=== PATIENT | male | born 1955 | race Hispanic/Latino ===

== ENCOUNTER 2022-06-17 15:00 | Emergency (ER) | payer SELFPAY ==
[~2022-06-17 15:00] MED LIST: Iopamidol 370 76% 100 ML VIAL ONE
[2022-06-17 15:40] LABS: #Lymphocytes 1.2 thou/uL (1.20-3.40); #Monocytes 0.8 thou/uL (0.11-0.59); #Neutrophils 11.9 thou/uL (1.40-6.50); %Basophils 0.2 % (0.0-1.0); %Lymphocytes 8.8 % (21.0-51.0); %Monocytes 5.9 % (0.0-10.0); %Neutrophils 85.1 % (42.0-75.0); Hemoglobin 15.5 g/dL (14.0-18.0); Mean Corpuscular HGB CONC 35.8 g/dL (32.0-36.0); Mean Corpuscular Hemoglobin 31.8 pg (27.0-31.0); Mean Corpuscular Volume 88.7 fl (78.0-98.0); Mean Platelet Volume 7.7 fL (7.4-10.4); Platelet Count 253 10x3/uL (130-400); RBC Distribution Width 12.4 % (11.5-14.5); White Blood Cell (WBC) Count 13.9 10x3/uL (4.8-10.8)
[2022-06-17 15:55] LABS: ALT (SGPT) 80 U/L (8-55); AST (SGOT) 37 U/L (5-34); Albumin 4.1 g/dL (3.4-4.8); Alkaline Phosphatase 83 U/L (40-110); Anion Gap 20 mmol/L (10-20); BUN (Urea Nitrogen) 39 mg/dL (8.4-25.7); Bilirubin, Total 1.1 mg/dL (0.2-1.2); Calc. Creatinine Clearance 0 mL/min (70-130); Calcium 11.7 mg/dL (7.8-10.44); Carbon Dioxide 25 mmol/L (23-31); Chloride 101 mmol/L (98-107); Estimated GFR 72; Globulin 3.9 g/dL (2.4-3.5); Glucose 154 mg/dL (80-115); Lipase 33 U/L (8-78); Potassium 3.3 mmol/L (3.5-5.1); Sodium 143 mmol/L (136-145)
[2022-06-17] MEDS ORDERED: Sodium Chloride 0.9% 1,000 ML ONE (15:58)
[2022-06-17] MEDS ORDERED: Sodium Chloride 0.9% 500 ML ONE (16:06)
== END 2022-06-17 18:11 | disposition short-term general hospital (02) ==
LOC: NAV ERS 15:00
DX: T18.128A Food in esophagus causing other injury, initial encounter (principal); R00.1 Bradycardia, unspecified; E86.0 Dehydration; D72.829 Elevated white blood cell count, unspecified; E83.52 Hypercalcemia; K22.89 Other specified disease of esophagus; R59.9 Enlarged lymph nodes, unspecified
CPT/HCPCS: 70491; 71045; 80053; 83605; 83690; 85025; 87040; 93005; 96360; 96361; J7030; J7050; Q9967

== ENCOUNTER 2022-07-03 16:05 | Inpatient (IN) | payer MEDICARE ==
[2022-07-03] MEDS ORDERED: Ondansetron ODT 4 MG TAB PER TUBE PRN (18:30)
[2022-07-03] MEDS ORDERED: Acetaminophen 325 MG TAB PER TUBE PRN (18:30)
[2022-07-03] MEDS ORDERED: Polyethylene Glycol 3350 17 GM Packet PER TUBE PRN (18:36)
[2022-07-03] MEDS ORDERED: Scopolamine 1.5 mg/72 hour Patch TD SCH (21:00)
[2022-07-03] MEDS: Senokot S 8.6-50 MG TAB PO SCH (21:34)
[2022-07-04 06:04] LABS: #Lymphocytes 0.8 thou/uL (1.20-3.40); #Monocytes 0.6 thou/uL (0.11-0.59); #Neutrophils 9.4 thou/uL (1.40-6.50); %Basophils 0.5 % (0.0-1.0); %Eosinophils 0.3 % (0.0-10.0); %Lymphocytes 7.5 % (21.0-51.0); %Monocytes 5.5 % (0.0-10.0); %Neutrophils 86.4 % (42.0-75.0); Hemoglobin 9.1 g/dL (14.0-18.0); Mean Corpuscular HGB CONC 33.7 g/dL (32.0-36.0); Mean Corpuscular Hemoglobin 30.9 pg (27.0-31.0); Mean Corpuscular Volume 91.6 fl (78.0-98.0); Mean Platelet Volume 5.4 fL (7.4-10.4); Platelet Count 410 10x3/uL (130-400); RBC Distribution Width 13.4 % (11.5-14.5); Red Blood Cell (RBC) Count 2.95 mill/uL (4.70-6.10); White Blood Cell (WBC) Count 10.9 10x3/uL (4.8-10.8)
[2022-07-04 06:25] LABS: ALT (SGPT) 30 U/L (8-55); AST (SGOT) 24 U/L (5-34); Albumin 2.7 g/dL (3.4-4.8); Alkaline Phosphatase 88 U/L (40-110); Anion Gap 14 mmol/L (10-20); BUN (Urea Nitrogen) 10 mg/dL (8.4-25.7); Bilirubin, Total 0.5 mg/dL (0.2-1.2); Calc. Creatinine Clearance 100 mL/min (70-130); Calcium 8.5 mg/dL (7.8-10.44); Carbon Dioxide 26 mmol/L (23-31); Chloride 99 mmol/L (98-107); Estimated GFR 107; Globulin 3.8 g/dL (2.4-3.5); Glucose 92 mg/dL (80-115); Potassium 3.7 mmol/L (3.5-5.1); Protein, Total 6.5 g/dL (5.8-8.1); Sodium 135 mmol/L (136-145)
[2022-07-04] MEDS: Senokot S 8.6-50 MG TAB PO SCH ×2 (08:49→21:49)
[2022-07-04] MEDS: Lansoprazole 3 MG/ML ORAL SUSPENSION PER TUBE SCH (08:49)
[2022-07-05] MEDS: Lansoprazole 3 MG/ML ORAL SUSPENSION PER TUBE SCH (09:51)
[2022-07-05] MEDS: Senokot S 8.6-50 MG TAB PO SCH ×2 (09:51→21:08)
[2022-07-06] MEDS: Lansoprazole 3 MG/ML ORAL SUSPENSION PER TUBE SCH (08:25)
[2022-07-06] MEDS: Senokot S 8.6-50 MG TAB PO SCH ×2 (08:25→21:26)
[2022-07-06] MEDS: Scopolamine 1.5 mg/72 hour Patch TD SCH (12:41)
[2022-07-06] MEDS: Tamsulosin HCl 0.4 MG CAP PO SCH (21:26)
[2022-07-07] MEDS: Lansoprazole 3 MG/ML ORAL SUSPENSION PER TUBE SCH (09:38)
[2022-07-07] MEDS: Senokot S 8.6-50 MG TAB PO SCH ×2 (09:39→20:13)
[2022-07-07] MEDS: Tamsulosin HCl 0.4 MG CAP PO SCH (20:13)
[2022-07-08 05:45] LABS: #Lymphocytes 0.9 thou/uL (1.20-3.40); #Monocytes 0.6 thou/uL (0.11-0.59); #Neutrophils 6.1 thou/uL (1.40-6.50); %Basophils 0.3 % (0.0-1.0); %Eosinophils 0.3 % (0.0-10.0); %Lymphocytes 11.8 % (21.0-51.0); %Monocytes 7.9 % (0.0-10.0); %Neutrophils 79.8 % (42.0-75.0); Hemoglobin 8.1 g/dL (14.0-18.0); Mean Corpuscular HGB CONC 33.5 g/dL (32.0-36.0); Mean Corpuscular Hemoglobin 30.3 pg (27.0-31.0); Mean Corpuscular Volume 90.4 fl (78.0-98.0); Mean Platelet Volume 5.1 fL (7.4-10.4); Platelet Count 321 10x3/uL (130-400); RBC Distribution Width 13.5 % (11.5-14.5); Red Blood Cell (RBC) Count 2.68 mill/uL (4.70-6.10); White Blood Cell (WBC) Count 7.7 10x3/uL (4.8-10.8)
[2022-07-08 06:04] LABS: Anion Gap 16 mmol/L (10-20); BUN (Urea Nitrogen) 10 mg/dL (8.4-25.7); Calc. Creatinine Clearance 111 mL/min (70-130); Calcium 8.5 mg/dL (7.8-10.44); Carbon Dioxide 28 mmol/L (23-31); Chloride 95 mmol/L (98-107); Estimated GFR 111; Glucose 114 mg/dL (80-115); Potassium 3.7 mmol/L (3.5-5.1); Sodium 135 mmol/L (136-145)
[2022-07-08] MEDS: Senokot S 8.6-50 MG TAB PO SCH ×2 (09:07→21:22)
[2022-07-08] MEDS: Lansoprazole 3 MG/ML ORAL SUSPENSION PER TUBE SCH (09:07)
[2022-07-08] MEDS: Tamsulosin HCl 0.4 MG CAP PO SCH (21:23)
[2022-07-09 06:05] VITALS: BMI 25.4
[2022-07-09] MEDS: Senokot S 8.6-50 MG TAB PO SCH ×2 (08:17→20:29)
[2022-07-09] MEDS: Lansoprazole 3 MG/ML ORAL SUSPENSION PER TUBE SCH (08:18)
[2022-07-09] MEDS: Scopolamine 1.5 mg/72 hour Patch TD SCH (11:54)
[2022-07-09] MEDS: Tamsulosin HCl 0.4 MG CAP PO SCH (20:29)
[2022-07-10 06:31] LABS: Anion Gap 16 mmol/L (10-20); BUN (Urea Nitrogen) 13 mg/dL (8.4-25.7); Calc. Creatinine Clearance 104 mL/min (70-130); Calcium 9.1 mg/dL (7.8-10.44); Chloride 94 mmol/L (98-107); Estimated GFR 108; Glucose 95 mg/dL (80-115); Potassium 3.9 mmol/L (3.5-5.1); Sodium 134 mmol/L (136-145)
[2022-07-10 06:42] LABS: #Basophils 0.1 thou/uL (0.0-0.2); #Monocytes 0.6 thou/uL (0.11-0.59); #Neutrophils 5.8 thou/uL (1.40-6.50); %Eosinophils 0.2 % (0.0-10.0); %Lymphocytes 13.2 % (21.0-51.0); %Monocytes 8.5 % (0.0-10.0); %Neutrophils 77.1 % (42.0-75.0); Hemoglobin 8.9 g/dL (14.0-18.0); Mean Corpuscular HGB CONC 33.3 g/dL (32.0-36.0); Mean Corpuscular Hemoglobin 30.7 pg (27.0-31.0); Mean Corpuscular Volume 92.1 fl (78.0-98.0); Mean Platelet Volume 5.3 fL (7.4-10.4); Platelet Count 320 10x3/uL (130-400); RBC Distribution Width 13.6 % (11.5-14.5); White Blood Cell (WBC) Count 7.5 10x3/uL (4.8-10.8)
[2022-07-10 07:16] LABS: Carbon Dioxide 28 mmol/L (23-31)
[2022-07-10] MEDS: Lansoprazole 3 MG/ML ORAL SUSPENSION PER TUBE SCH (09:02)
[2022-07-10] MEDS: Senokot S 8.6-50 MG TAB PO SCH ×2 (09:02→21:19)
[2022-07-10] MEDS: Metoclopramide 10 MG/10 ML UDCUP PER TUBE SCH (21:19)
[2022-07-10] MEDS: Tamsulosin HCl 0.4 MG CAP PO SCH (21:19)
[2022-07-11] MEDS: Lansoprazole 3 MG/ML ORAL SUSPENSION PER TUBE SCH (07:39)
[2022-07-11] MEDS: Senokot S 8.6-50 MG TAB PO SCH (07:40)
[2022-07-11] MEDS: Metoclopramide 10 MG/10 ML UDCUP PER TUBE SCH ×2 (07:40→11:50)
[2022-07-11 08:43] VITALS: BP 121/62; TEMP 97.9
== END 2022-07-11 15:00 | disposition short-term general hospital (02) | DRG 947 ==
LOC: NAV ACUTE 19:28
PROVIDERS: ADMIT Family Medicine; ATTEND Family Medicine
DX: R53.81 Other malaise (principal); J96.01 Acute respiratory failure with hypoxia; C15.9 Malignant neoplasm of esophagus, unspecified; C78.00 Secondary malignant neoplasm of unspecified lung; R53.1 Weakness; R13.10 Dysphagia, unspecified; Z93.1 Gastrostomy status; D63.0 Anemia in neoplastic disease; K21.9 Gastro-esophageal reflux disease without esophagitis; Z79.899 Other long term (current) drug therapy; Z87.891 Personal history of nicotine dependence; R33.9 Retention of urine, unspecified
CPT/HCPCS: 36415; 80048; 80053; 85025; Q0162

== ENCOUNTER 2022-07-11 15:05 | Emergency (ER) | payer MEDICARE ==
[~2022-07-11 15:05] MED LIST changes: -Iopamidol 370 76% 100 ML VIAL ONE; +Rocuronium Bromide 10 MG/ML (10ML VIAL) ONE
[2022-07-11 15:38] LABS: #Basophils 0.1 thou/uL (0.0-0.2); #Lymphocytes 3.3 thou/uL (1.20-3.40); #Neutrophils 6.8 thou/uL (1.40-6.50); %Basophils 0.5 % (0.0-1.0); %Eosinophils 0.2 % (0.0-10.0); %Lymphocytes 29.4 % (21.0-51.0); %Monocytes 9.2 % (0.0-10.0); %Neutrophils 60.6 % (42.0-75.0); Hemoglobin 9.2 g/dL (14.0-18.0); Mean Corpuscular HGB CONC 33.1 g/dL (32.0-36.0); Mean Corpuscular Hemoglobin 30.3 pg (27.0-31.0); Mean Corpuscular Volume 91.5 fl (78.0-98.0); Platelet Count 370 10x3/uL (130-400); RBC Distribution Width 13.3 % (11.5-14.5); Red Blood Cell (RBC) Count 3.04 mill/uL (4.70-6.10); White Blood Cell (WBC) Count 11.2 10x3/uL (4.8-10.8)
[2022-07-11] MEDS ORDERED: Midazolam HCl 5 mg/ml Vial ONE (15:46)
[2022-07-11] MEDS ORDERED: Midazolam HCl 2 mg/2 ml Vial ONE (15:46)
[2022-07-11 15:55] LABS: ALT (SGPT) 20 U/L (8-55); AST (SGOT) 21 U/L (5-34); Albumin 3.3 g/dL (3.4-4.8); Alkaline Phosphatase 96 U/L (40-110); Anion Gap 17 mmol/L (10-20); BUN (Urea Nitrogen) 18 mg/dL (8.4-25.7); Bilirubin, Total 0.5 mg/dL (0.2-1.2); Calc. Creatinine Clearance 0 mL/min (70-130); Calcium 9.7 mg/dL (7.8-10.44); Carbon Dioxide 29 mmol/L (23-31); Chloride 95 mmol/L (98-107); Estimated GFR 102; Globulin 4.7 g/dL (2.4-3.5); Glucose 144 mg/dL (80-115); Potassium 3.8 mmol/L (3.5-5.1); Sodium 137 mmol/L (136-145)
[2022-07-11 15:58] LABS: Base Excess-Venous 4.9 mmol/L (-2.0 to 3.0); Bicarbonate (HCO3v) 35.1 mmol/L (22.0-28.0); CO2 Tension (PvCO2) 89.9 mmHg (42.0-51.0); Calcium, Ionized 1.28 mmol/L (1.15-1.33); Chloride 96 mmol/L (98-107); Hemoglobin - Calc 10.4 g/dL (14.0-18.0); Potassium 3.6 mmol/L (3.5-5.1); Sodium 136 mmol/L (138-145); T. Carbon Dioxide 37.8 mmol/L (22.0-28.0); vO2 Saturation-calc 80.2 % (60.0-85.0)
[2022-07-11] MEDS ORDERED: Fentanyl 100 MCG/2 ML VIAL ONE (16:16)
== END 2022-07-11 17:25 | disposition short-term general hospital (02) ==
LOC: NAV ERS 15:05
DX: R06.03 Acute respiratory distress (principal); K21.9 Gastro-esophageal reflux disease without esophagitis
CPT/HCPCS: 31500; 36415; 71045; 80053; 82330; 82803; 85014; 85025; 96374; 96375; J2250; J3010